=== PATIENT | female | born 1935 | race Caucasian/White ===

== ENCOUNTER → 2019-09-02 12:45 | Outpatient (CLI) | payer MEDICARE, SELFPAY ==
--- NOTE | 2019-09-03 15:13 | PM.PFT.1 ---
Pulmonary Function Test Referral & Results Date Patient Seen: 09/02/19 Requesting provider: Haresh Frederick Results: The spirometry demonstrates an FVC of 1.36 L which is 62% of predicted. The FEV1 was measured at 1.03 L which is 63% of predicted. The FEV1/FVC ratio was 75 which is 103% of predicted. Following the administration of bronchodilator there was no appreciable change. Lung volumes show an SVC of 1.87 L which is 70% of predicted. The diffusing capacity was measured at 17.16 which is 79% of predicted. No hemoglobin value was provided, so no correction for potential anemia could be made, if appropriate. The maximum voluntary ventilation was reduced Interpretation: This study demonstrates moderately severe obstructive lung disease without evidence of benefit following bronchodilator administration There may also be mild restrictive lung disease present based on slight reduction SVC There is also slight reduction in diffusing capacity suggesting an element of disease at the capillary alveolar level as well Compared to PFTs performed in March 2015, current study shows significant improvement in lung volumes including FEV1 and SVC Clinical correlation suggested
== END ==
PROVIDERS: Family Provider Internal Medicine Cardiovascular Disease; PCP Student in an Organized Health Care Education/Training Program; Referring Provider Internal Medicine Critical Care Medicine; Visit Provider Student in an Organized Health Care Education/Training Program
DX: J43.2 Centrilobular emphysema (principal)
CPT/HCPCS: 94060; 94726; 94729

== ENCOUNTER 2020-01-03 06:25 | Day surgery (SDC) | payer MEDICARE, SELFPAY ==
[2019-12-30 10:49] VITALS: BMI 29.9
[2020-01-03] VITALS (10 sets, daily range): BP systolic 70–143; BP diastolic 33–75; PULSE 66–88; RESP 12–20; TEMP 36.2–37.2; O2SAT 92–99; BMI 29.9
[2020-01-03] MEDS: LACTATED RINGERS 1,000 ML 100 ML IV ×2 (07:15→09:08)
--- NOTE | 2020-01-03 08:07 | PM.PREOP ---
Pre-operative Note Interval Note History & Physical reviewed/Exam performed by Physician: Yes Changes to H&P: No
[2020-01-03] MEDS: CLINDAMYCIN 900 MG/50 ML PIGGYBACK 50 MG IV (08:20)
--- NOTE | 2020-01-03 08:41 | SUR.OPER ---
Supine on padded OR bed, head on pillow, arms secured on padded arm boards at <90 degrees abduction, legs uncrossed, safety belt at thigh, tape over blanket over lower legs.
[2020-01-03] MEDS: BUPIVACAINE 0.5% (PF) VIAL 30 ML INJ (08:46)
--- NOTE | 2020-01-03 10:55 | PM.OP.1 ---
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 Post-op diagnosis: same Procedure & Clinicians Procedure: Repair with overlay of mesh Same procedure as scheduled: Yes Indications: symptomatic hernia recently incarcerated requiring an ER visit. Surgeon: Vini Patricio Click Yes if Unassisted: Yes Anesthesia Type: General Operative Notes Findings: 2 small defects near 1 another. Extensive adhesions to the underside of the fascial defects. Because of this I chose to place an onlay rather than underlay of mesh. Lightweight mesh was used. Closure Type: primary Specimen(s): none sent Prosthetic devices, grafts, tissues, transplants, or devices: Mesh Estimated Blood Loss (mL): 10 Blood products transfused: none Procedure in detail: patient was placed supine on the operating room table and underwent general LMA anesthesia. She was prepped and draped in the usual fashion. Incision was made through an old incision which overlay the hernia. The incision was carried down through the subcu fat to the level of the fascia. I the overlying fat from the underlying hernia. I entered the hernia sac intentionally due to its unusual shape and very small size. She had had numerous prior operations and I was quite concerned about releasing any adhesions on the underside of the abdominal wall. Identified 2 hernias both of which I was able to clear the underlying tissues off the overlying abdominal wall. I closed these defects with interrupted 0 Ethibond incorporating the mesh into the repair sutures. This tacked the mesh down directly over the hernia repair sites. I then cleared the fascia well back beyond these hernia sites and tacked this lightweight mesh to the fascia taking great care to take superficial bites with interrupted 0 Ethibond sutures. The mesh was trimmed to remove the excess. The subcu was closed over the mesh tacking it down to the mesh to at least partially eliminate any potential space for seroma formation. The subcu was closed with interrupted 3 0 Vicryl and skin was closed running 4 0 Vicryl subcuticular stitch and Steri-Strips. Dressing was applied and the patient was awakened extubated taken recovery area in good condition. Complications: none Post-operative Condition: stable Disposition: PACU
[2020-01-03] MEDS: OXYCODONE/ACETAMINOPHEN 5/325 TABLET 1 TAB PO (11:12)
--- NOTE | 2020-01-03 11:26 | SUR.PHASEII ---
Call light within reach. RX given to friend to take to the pharmacy.
--- NOTE | 2020-01-03 17:27 | SUR.PHASEII ---
1305 RN who received pt unavailable, her friend conveyed that she wanted to go home. Confirmed that she was ready for discharge with previous RN. Dressing CDI
--- NOTE | 2020-01-03 17:29 | SUR.PHASEII ---
1305 IV not scanned, 1200 infused in the OR, 100 ml in PACU.
== END 2020-01-03 13:29 | disposition home or self-care (01) ==
PROVIDERS: Family Provider Internal Medicine Cardiovascular Disease; PCP Student in an Organized Health Care Education/Training Program; Referring Provider Specialist; Visit Provider Specialist
PROC: (CPT 49560; principal; 2020-01-03 07:45)
DX: K43.9 Ventral hernia without obstruction or gangrene (principal); K66.0 Peritoneal adhesions (postprocedural) (postinfection); J44.9 Chronic obstructive pulmonary disease, unspecified
CPT/HCPCS: 49560; 49568; C1781; J1100; J2250; J2405; J2704; J3010